=== PATIENT | female | born 1955 | race Caucasian/White ===

== ENCOUNTER 2018-10-04 10:52 | Emergency (ER) | payer MEDICARE, BC ==
[~2018-10-04] VITALS: Ht 170.2 cm; Wt 77.1 kg
[2018-10-04] MEDS ORDERED: HYDROMORPHONE 1 MG/1 ML DISP.SYRIN IM ONE (11:30)
[2018-10-04] MEDS ORDERED: HYDROMORPHONE 1 MG/1 ML DISP.SYRIN ONE (11:31)
--- NOTE | 2018-10-04 11:41 | NUR ---
Patient discharged to home in stable conditon with family. Written and verbal after care instructions given. Patient verbalizes understanding of instructions. Stressed follow up with pmd or return to ER for worsening s/s.
== END 2018-10-04 11:43 | disposition home or self-care (01) ==
LOC: ER 10:52
DX: M54.16 Radiculopathy, lumbar region (principal); M79.604 Pain in right leg
CPT/HCPCS: 96372; 99283; J1170; A4663